=== PATIENT | female | born 1990 | race Caucasian/White ===

== ENCOUNTER 2024-05-16 10:00 | Emergency (ER) | payer BC, OTHER | END 2024-05-16 18:49 | disposition home or self-care (01) | LOC: ER 10:00 | DX: R10.2 Pelvic and perineal pain (principal); I47.10 Supraventricular tachycardia, unspecified; I49.5 Sick sinus syndrome; Z88.5 Allergy status to narcotic agent ==

== ENCOUNTER → 2024-05-16 | Emergency (ER) | payer BC, OTHER ==
[~2024-05-16] VITALS: Ht 162.6 cm; Wt 102.1 kg
[2024-05-16 14:21] LABS: *CLARITY,URINE SLIGHTLY CLOUDY (CLEAR)
[2024-05-16 14:22] LABS: *BILIRUBIN,URIN NEGATIVE (NEGATIVE); *BLOOD, URINE 3+ (NEGATIVE); *COLOR,URINE YELLOW (YELLOW); *KETONES,URINE NEGATIVE (NEGATIVE); *PROTEIN,URINE NEGATIVE (NEGATIVE); *UROBILINOGEN,URINE 0.2 E.U./dl (NORMAL); LEUKOCYTE ESTERASE ,URINE 1+ (NEGATIVE); NITRITE, URINE NEGATIVE (NEGATIVE); UGLUCOSE NEGATIVE (NEGATIVE)
[2024-05-16 14:23] LABS: *URINE HCG, QUAL NEGATIVE (NEGATIVE)
[2024-05-16 14:24] LABS: BACTERIA,URINE MANY /HPF (NONE SEEN); SQUAMOUS EPITHELIAL CELL,UR MANY /HPF (NONE SEEN)
[2024-05-16 14:25] LABS: HEMATOCRIT 42.4 % (31.2-41.9); HEMOGLOBIN 13.7 g/dL (10.9-14.3); RED BLOOD CELL COUNT(AUTO) 4.69 MIL/uL (3.63-4.92); WHITE BLOOD COUNT (AUTO) 8.4 K/uL (3.8-11.8)
[2024-05-16 14:26] LABS: BASOPHILS % (AUTO) 1.3 % (0.0-2.0); EOSINOPHILS % (AUTO) 1.8 % (0.0-7.0); LYMPHOCYTES # (AUTO) 2.2 K/uL (0.8-4.8); LYMPHOCYTES % (AUTO) 26.5 % (20.5-51.5); MEAN CORPUSCULAR HEMOGLOBIN 29.3 uug (24.7-32.8); MEAN CORPUSCULAR HGB CONC 32 g/dL (32.3-35.6); MEAN CORPUSCULAR VOLUME 90.5 fL (75.5-95.3); MONOCYTES % (AUTO) 9.8 % (0.0-11.0); NEUTROPHILS # (AUTO) 5.1 K/uL (1.8-8.9); NEUTROPHILS % (AUTO) 60.6 % (38.5-71.5); PLATELET COUNT (AUTO) 265 K/uL (179-408); RED CELL DISTRIBUTION WIDTH 14.8 % (12.3-17.7)
[2024-05-16 14:27] LABS: BASOPHILS # (AUTO) 0.1 K/UL (0.0-0.2); EOSINOPHILS # (AUTO) 0.1 K/uL (0.0-0.7); MONOCYTES # (AUTO) 0.8 K/uL (0.1-1.30)
[2024-05-16 14:47] VITALS: BP 132/75; TEMP 98.1; O2SAT 98
[2024-05-16 14:56] LABS: CALCIUM 8.9 mg/dL (8.5-10.1); CARBON DIOXIDE 13 mmol/L (21-32); CHLORIDE 107 mmol/L (98-107); CREATININE 0.8 mg/dL (0.6-1.3); GLUCOSE 102 mg/dL (74-106); POTASSIUM 3.7 mmol/L (3.5-5.1); SODIUM SERUM 141 mmol/L (136-145); UREA NITROGEN, BLOOD 10 mg/dL (7-18)
[2024-05-16 14:58] LABS: ALANINE AMINOTRANSFERASE 29 U/L (14-59); ALBUMIN 3.6 g/dL (3.4-5.0); ALKALINE PHOSPHATASE 118 U/L (50-136); ASPARTATE AMINOTRANSFERASE 13 U/L (15-37); BILIRUBIN,TOTAL 0.3 mg/dL (0.2-1.0); TOTAL PROTEIN, SERUM 7.9 g/dL (6.4-8.2)
[2024-05-16 15:12] LABS: PREGNANCY TEST SERUM QUAN < 1 miul/L (0-6)
== END | disposition home or self-care (01) ==
LOC: ER 10:47
DX: R10.2 Pelvic and perineal pain (principal); I47.10 Supraventricular tachycardia, unspecified; I49.5 Sick sinus syndrome; Z88.5 Allergy status to narcotic agent; Z88.1 Allergy status to other antibiotic agents
CPT/HCPCS: 36415; 76856; 84703; 85025; A4606; A4663